=== PATIENT | male | born 2000 | race Caucasian/White ===

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

== ENCOUNTER 2024-10-11 19:29 | Emergency (ER) | payer MEDICAID ==
[2024-10-11 19:45] VITALS: BP 141/88; PULSE 69
[2024-10-11] MEDS: Diphtheria,Pertussis(Acell),Tetanus Vaccine 0.5 ML Syringe IM ONE (20:02)
[2024-10-11] MEDS: Bacitracin Oint 1 GM U/D Packet TOP ONE (20:26)
[2024-10-11] MEDS: Lidocaine 1% 10 ML MDV INJECT ONE (20:26)
== END 2024-10-11 20:29 | disposition home or self-care (01) ==
LOC: JP.ED 19:29
DX: S61.211A Laceration without foreign body of left index finger without damage to nail, initial encounter (principal); X50.1XXA Overexertion from prolonged static or awkward postures, initial encounter; Z23 Encounter for immunization
CPT/HCPCS: 12011; 90471; 99282; J2003